=== PATIENT | male | born 1940 | race Caucasian/White ===

== ENCOUNTER → 2018-07-25 10:51 | Outpatient (CLI) | payer MEDICARE, SELFPAY ==
--- NOTE | 2018-07-25 | DI.CT.S_ITS ---
PROCEDURE: CT LE RT WO CON INDICATIONS: PAIN IN RIGHT ANKLE/JOINTS OF RIGHT FOOT TECHNIQUE: Noncontrast 1-1.5 mm axial sections acquired from above the tibiotalar joint to the bottom of the calcaneus, with coronal and sagittal reformats. COMPARISON: [facility], CR, XR ANKLE 3 VIEWS WEIGHT BEARING RIGHT, 07/20/2018, 9:44. [facility], CR, XR FOOT 3 VIEWS WEIGHT BEARING RIGHT, 07/20/2018, 9:37. FINDINGS: Image quality: Diagnostic. Bones: There is no acute fracture, dislocation, or suspicious osseous lesion. The ankle mortise is well-maintained without an osteochondral defect evident. There are moderate degenerative changes identified throughout the joints of the imaged right foot, most pronounced involving the mid foot and hindfoot joints, best appreciated involving the subtalar joints. Irregularity of the tips of the medial and lateral malleoli probably is related to previous ligamentous injuries. Soft tissues: There is a marker identified along the lateral aspect of the ankle lung the anterolateral margin of the distal fibula. No underlying bony or soft tissue masses identified at this location. However, there is mild focal soft tissue edema and a few borderline prominent subcutaneous vessels within this region. Please note that the ligamentous, tendinous, and cartilaginous structures are not well evaluated on CT. However, there does appear to be thickening of the Achilles tendon and the peroneus brevis and peroneus longus tendons. IMPRESSION: 1. 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 2. No soft tissue or bony mass is evident at the site of the patient's palpable abnormality along the lateral margin of the distal fibula. Focal edema and a few prominent subcutaneous vessels within this region are evident. 3. Thickening of the peroneal and Achilles tendons is suspicious for tendinopathy. The need for better characterization utilizing MRI may be determined clinically. Dictated by: Navin Armenta M.D. on 07/25/2018 at 14:00 Approved by: Navin Armenta M.D. on 07/25/2018 at 14:03
== END ==
PROVIDERS: PCP Internal Medicine; Visit Provider Orthopaedic Surgery Foot and Ankle Surgery
DX: M25.571 Pain in right ankle and joints of right foot (principal); M19.071 Primary osteoarthritis, right ankle and foot
CPT/HCPCS: 73700

== ENCOUNTER → 2018-08-08 09:24 | Outpatient (CLI) | payer MEDICARE, SELFPAY ==
[2018-08-08 10:45] LABS: Alanine Aminotransferase 31 IU/L (21-72); Albumin 4.5 g/dL (3.5-5.0); Albumin Globulin Ratio 1.5 (1.0-2.8); Alkaline Phosphatase 69 U/L (38-126); Aspartate Aminotransferase 28 IU/L (17-59); Bilirubin Total 0.6 mg/dL (0.2-1.3); Blood Urea Nitrogen 17 mg/dL (9-20); Calcium 9.3 mg/dL (8.4-10.2); Carbon Dioxide 31 mmol/L (22-32); Chloride 103 mmol/L (98-107); Cholesterol 181 mg/dL (140-199); Estimated Glomerular Filt Rate > 60.0 mL/min (>60); Globulin 3.1 g/dL (1.7-4.1); Glucose 97 mg/dL (80-110); HDL Cholesterol 46 mg/dL (40-60); HEMOLYSIS < 15 (0-50); LDL Cholesterol Calculated 100 mg/dL (<100); Potassium 3.8 mmol/L (3.4-5.1); Sodium 146 mmol/L (137-145); Total Protein 7.6 g/dL (6.3-8.2); Triglycerides 173 mg/dL (35-150)
== END ==
PROVIDERS: PCP Internal Medicine; Visit Provider Internal Medicine
DX: E78.5 Hyperlipidemia, unspecified (principal); I10 Essential (primary) hypertension; Z12.11 Encounter for screening for malignant neoplasm of colon
CPT/HCPCS: 80053; 80061; 84153

== ENCOUNTER → 2019-05-30 13:58 | Outpatient (CLI) | payer MEDICARE, SELFPAY ==
--- NOTE | 2019-05-30 | DI.ECHO.S_ITS ---
[facility] +---------+ : : [address] : [place] : : : : [id number] : : : : Phone: [phone]+ Echocardiogram Report + + :Name: BIIBANA HODGE Study Date: 05/30/2019 Height: 72 in : :[facility] Weight: 194 lb : : Gender: Male BSA: 2.1 m2 : :: 1940 Age: 78 yrs BP: 130/72 mmHg: :Reason For Study: Atrial fibrillation : :Ordering Physician: Zuri : :Mady Hart Performed By: Pilar Zapata : :Referring: Dr. Bibiana Jurado : + + Interpretation Summary 1) Mildly increased left ventricular thickness (concentric) with normal left ventricular size and normal systolic function (EF 55-60%). 2) There are no obvious focal wall motion abnormalities noted but poor endocardial definition reduces the sensitivity for the detection of such. 3) Normal right ventricular size with borderline reduced function. 4) There is severe biatrial enlargement. 5) There is mild to moderate tricuspid regurgitation. 6) Right ventricular systolic pressure is estimated to be 44 mmHg plus the clinically estimated CVP which cannot be estimated on this exam. 7) No prior Echo available for comparison. Procedure: A two-dimensional transthoracic echocardiogram with color flow and Doppler was performed. The study quality was technically adequate. Comparison is made with the echocardiogram of 12-09-06. The patient was in atrial fibrillation with heart rates between 65-75 bpm during the exam. Left Ventricle: The left ventricle is normal in size. There is mild concentric left ventricular hypertrophy. The ejection fraction is estimated to be 55-60%. Left ventricular systolic function is normal. There are no obvious focal wall motion abnormalities noted but poor endocardial definition reduces the sensitivity for the detection of such. Right Ventricle: The right ventricle is normal size. Right ventricular systolic function is borderline reduced. Atria: There is severe biatrial enlargement. The interatrial septum is intact with no evidence for an atrial septal defect. Mitral Valve: The mitral valve is grossly normal. There is trace mitral regurgitation. Aortic Valve: The aortic valve is trileaflet. The aortic valve opens well. There is mild aortic valve sclerosis. There is no aortic valve stenosis. There is trace aortic regurgitation. Tricuspid Valve: The tricuspid valve leaflets are thin and pliable. There is mild to moderate tricuspid regurgitation. Right ventricular systolic pressure is estimated to be 44 mmHg plus the clinically estimated CVP which cannot be estimated on this exam. Pulmonic Valve: The pulmonic valve is not well seen, but is grossly normal. There is mild pulmonic regurgitation. Great Vessels: The aortic root is normal size. The ascending aorta is at the upper limits of normal in size. The aortic arch is normal in size. The inferior vena cava was not visualized. Pericardium/ Pleura There is no pericardial effusion. There is no pleural effusion. MMode/2D Measurements & Calculations LVIDd: 4.7 cm Ao root diam: 3.7 cm LVIDs: 3.6 cm Aortic Jxn: 2.3 cm FS: 22.9 % asc Aorta Diam: 3.6 cm EPSS: 1.2 cm Ao Arch Diam (Prox Trans): 2.9 cm IVSd: 1.2 cm LVPWd: 1.1 cm LV banks. diameter/BSA (cm/m^2): 2.2 LV sys. diameter/BSA (cm/m^2): 1.7 LA dimension: 4.7 cm RA long axis: 6.0 cm LA A2 area: 33.6 cm2 RA area: 30.9 cm2 LA A4 area: 31.9 cm2 RA vol: 134.5 ml LA length (vol): 7.1 cm RA : 64.0 ml/m2 LA vol: 128.1 ml RVDd major: 6.0 cm LA vol index: 60.9 ml/m2 RVD1 (basal): 4.6 cm RVD2 (mid): 3.4 cm Doppler Measurements & Calculations Ao V2 max: 121.3 cm/sec Med Peak E' Gold: 6.3 cm/sec Ao V2 mean: 81.3 cm/sec Lat Peak E' Gold: 10.9 cm/sec Ao max P.9 mmHg MV P1/2t: 70.7 msec Ao mean P.1 mmHg Ao V2 VTI: 24.8 cm TR max gold: 332.4 cm/sec MV V2 mean: 38.4 cm/sec TR max P.2 mmHg MV mean P.81 mmHg PA V2 max: 58.3 cm/sec MV V2 VTI: 19.0 cm PA V2 mean: 36.2 cm/sec PA mean P.64 mmHg PA Accel Time: 0.08 sec MV P1/2t max gold: 87.7 cm/sec MVA(P1/2t): 3.1 cm2 Reading Physician:05:19 PM
== END ==
PROVIDERS: PCP Internal Medicine; Visit Provider Internal Medicine Cardiovascular Disease
DX: I48.1 Persistent atrial fibrillation (principal); I51.7 Cardiomegaly
CPT/HCPCS: 93306

== ENCOUNTER → 2019-06-09 07:56 | Outpatient (CLI) | payer MEDICARE, SELFPAY ==
[2019-06-09 09:40] LABS: Add Manual Diff / Slide Review NO; Basophils Absolute Auto 100 /uL (0-100); Basophils Percent Auto 0.8 % (0-2); Eosinophils Absolute Auto 300 /uL (0-450); Eosinophils Percent Auto 3.5 % (2-4); Hematocrit 44.4 % (41-53); Hemoglobin 14.6 g/dL (13.5-17.5); Lymphocytes Absolute Auto 2000 /uL (1100-4500); Lymphocytes Percent Auto 27.8 % (25-40); Mean Corpuscular HGB Conc 32.8 % (30-36); Mean Corpuscular Hemoglobin 29.4 PG (26-34); Mean Corpuscular Volume 89.5 fL (80-100); Monocytes Absolute Auto 800 /uL (0-900); Monocytes Percent Auto 10.7 % (3-14); Neutrophils Absolute Auto 4200 /uL (1500-7000); Neutrophils Percent Auto 57.2 % (50-75); Platelet Count 295 X10^3/uL (150-400); Red Blood Cell Count 4.96 X10^6/uL (4.5-5.9); Red Cell Distribution Width 16.1 % (11.6-14.8); White Blood Cell Count 7.3 X10^3/uL (4.5-11.0)
[2019-06-09 09:54] LABS: Blood Urea Nitrogen 16 mg/dL (9-20); Calcium 9.5 mg/dL (8.4-10.2); Carbon Dioxide 29 mmol/L (22-32); Chloride 103 mmol/L (98-107); Cholesterol 162 mg/dL (140-199); Estimated Glomerular Filt Rate > 60.0 mL/min (>60); Glucose 92 mg/dL (80-110); HDL Cholesterol 52 mg/dL (40-60); HEMOLYSIS < 15 (0-50); LDL Cholesterol Calculated 90 mg/dL (<100); Potassium 4.1 mmol/L (3.4-5.1); Sodium 141 mmol/L (137-145); Triglycerides 101 mg/dL (35-150)
== END ==
PROVIDERS: Family Provider Internal Medicine; PCP Internal Medicine; Visit Provider Internal Medicine Cardiovascular Disease
DX: E78.5 Hyperlipidemia, unspecified (principal); Z79.01 Long term (current) use of anticoagulants; I10 Essential (primary) hypertension
CPT/HCPCS: 36415; 80048; 80061; 85025

== ENCOUNTER 2019-08-14 10:00 | Outpatient (RCR) | payer MEDICARE, SELFPAY | END 2019-08-29 11:30 | LOC: CAR 10:00 | PROVIDERS: PCP Internal Medicine; Visit Provider Internal Medicine | DX: Z95.1 Presence of aortocoronary bypass graft (principal) | CPT/HCPCS: 93798 ==